=== PATIENT | female | born 1990 | race Two or more races ===

== ENCOUNTER → 2025-03-03 | Outpatient (CLI) | payer MEDICAID, SELFPAY ==
--- NOTE | 2025-03-03 15:00 | XR_ITS ---
Examination: Abdomen sonogram, complete Date and time of exam: March 03, 2025 1453 hours INDICATIONS: Left lower abdominal pain beginning one year ago. Technique: Multiple real-time grayscale transabdominal sonographic images of the abdomen have been obtained. Findings: Normal gallbladder. Normal common bile duct 0.2 cm. Pancreatic and 1.9 cm. Aorta is not enlarged. Liver 12.6 cm fatty infiltration smooth contour no focal liver lesions. Normal hepatopedal portal venous flow. Patent IVC. Right kidney 11.9 cm cortex 1.2 cm Left kidney 11.0 cm renal cortex 1.5 cm Mild renal parenchymal scar formation. Spleen 8.6 cm IMPRESSION: Normal gallbladder Fatty infiltration throughout the liver
== END | disposition home or self-care (01) ==
DX: K76.0 Fatty (change of) liver, not elsewhere classified (principal)
CPT/HCPCS: 76700

== ENCOUNTER → 2025-04-21 | Outpatient (CLI) | payer MEDICAID, SELFPAY ==
--- NOTE | 2025-04-21 15:30 | XR_ITS ---
Examination: Abdomen sonogram, Limited Date and time of exam: April 21, 2025, 1602 hours INDICATIONS: Left flank umbilical pain beginning one year ago Technique: Real-time young scale transabdominal sonographic images of the upper abdomen obtained. Findings: No hernia defect in the umbilical region seen IMPRESSION: No hernia defect noted
== END | disposition home or self-care (01) ==
LOC: CDIM 15:51
DX: R10.9 Unspecified abdominal pain (principal)
CPT/HCPCS: 76705